=== PATIENT | female | born 1980 | race Caucasian/White ===

== ENCOUNTER → 2017-09-03 | Outpatient (CLI) | payer OTHER | END | disposition home or self-care (01) | LOC: NUCLEAR 09:25 | DX: E05.00 Thyrotoxicosis with diffuse goiter without thyrotoxic crisis or storm (principal); E03.8 Other specified hypothyroidism; E04.8 Other specified nontoxic goiter | CPT/HCPCS: 78012; A9531 ==

== ENCOUNTER 2017-09-04 09:58 | Outpatient (CLI) | payer OTHER | END 2017-09-04 10:00 | disposition home or self-care (01) | LOC: NUCLEAR 09:58 | DX: E05.00 Thyrotoxicosis with diffuse goiter without thyrotoxic crisis or storm (principal) | CPT/HCPCS: 78013; A9512 ==

== ENCOUNTER 2025-06-28 07:00 | Day surgery (SDC) | payer OTHER ==
[2025-06-08 11:19] LABS: URINE APPEARANCE Clear; URINE BILIRRUBIN Negative (NEGATIVE); URINE BLOOD Small; URINE COLOR Yellow; URINE GLUCOSE Negative (NEGATIVE); URINE KETONE Negative (NEGATIVE); URINE LEUKOCYTE Trace; URINE NITRATE Negative; URINE PROTEIN Negative (NEGATIVE); URINE UROBILINOGEN 0.2 E.U./dl
[2025-06-08 11:21] LABS: URINE BACTERIA 1367.9 uL (0.0-1933); URINE EPITHELIAL CELLS 7.3 uL (0.0-38.8); URINE RBC 26.1 uL (0.0-20.8); URINE WBC 8.4 uL (0.0-23.2)
[2025-06-08 11:22] LABS: BASO % 0.6 % (0.1-1.2); EOS # 0.20 (0.04-0.54); EOS % 2.9 % (0.7-7.0); LYMPH # 2.22 (1.18-3.74); LYMPH % 31.9 % (19.3-53.1); MEAN PLATELET VOLUME 10.00 fl (9.4-12.4); MONO # 0.30 (0.24-0.82); MONO % 4.3 % (4.7-12.5); NEUT # 4.18 (1.56-6.13); NEUT % 60.2 % (34.0-71.1); RED CELL DISTRIBUTION WIDTH 13.0 % (11.6-14.4); URINE CAST 0.00 uL (0.0-1.40)
[2025-06-08 11:34] VITALS: BP 120/86
[2025-06-08 11:44] LABS: INR 1.01
[2025-06-08 12:16] LABS: ALT/SGPT 17.0 U/L (12-78); AST/SGOT 14.0 U/L (15-37); BILIRUBIN TOTAL 0.46 mg/dL (0.3-1.2); BUN CREA RATIO 14.0 (7.0-25.0); CREATININE SERUM 0.78 mg/dL (0.55-1.02); GFR 80.99; GLOBULINA 4.1 G/DL (2.4-3.5); GLUCOSE FASTING 81.0 mg/dL (65-100); OSMOLALITY SERUM 280.0 MOSM/KG (275-295)
[~2025-06-28] VITALS: Ht 149.9 cm; Wt 72.6 kg
[~2025-06-28 07:00] MED LIST: MAGNESIUM CITRATE; TAPAZOLE5 MG; VITAMIN D3
[2025-06-28] MEDS ORDERED: DEXAMETHASONE SODIUM PHOSPHATE 4 MG/ML VIAL ONE ×2 (08:01→08:02)
[2025-06-28] MEDS ORDERED: SUGAMMADEX SODIUM 200 MG/2 ML VIAL IV ONE (11:31)
[2025-06-28] MEDS ORDERED: OXYMETAZOLINE HCL 15 ML NASAL DROPS NASAL ONE (11:45)
== END 2025-06-28 14:10 | disposition home or self-care (01) ==
LOC: CIR.AMB 07:00
PROVIDERS: ATTEND Otolaryngology
DX: J35.1 Hypertrophy of tonsils (principal)